=== PATIENT | female | born 1985 | race Caucasian/White ===

== ENCOUNTER 2018-01-16 14:51 | Emergency (ER) | payer BC ==
[2018-01-16 16:14] VITALS: BP 129/85
--- NOTE | 2018-01-16 16:25 | UC ---
Respiratory Complaint HPI - HPI Summary HPI Summary: Sinus congestion x 3 weeks ago, with gradual development of a productive cough with increased wheeze at night. No shortness of breath. Energy decreased, not sleeping well. Sore throat resolved, no ear pain or headache. Travelling to [place] by air tomorrow to spend 5 days on a houseboat. - History of Current Complaint Chief Complaint: UCRespiratory Stated Complaint: COUGH/CONGESTION Time Seen by Provider: 01/16/18 16:13 Hx Obtained From: Patient Hx Last Menstrual Period: 12/30/17 Onset/Duration: Gradual Onset, Lasting Weeks - 3 Timing: Intermittent Episodes Severity Initially: Moderate Severity Currently: Moderate Pain Intensity: 3 Character: Cough: Productive - clear sputum Aggravating Factors: Recumbent Position Alleviating Factors: OTC Meds Associated Signs And Symptoms: Positive: Wheezing - Risk Factors Pulmonary Embolism Risk Factors: Negative Cardiac Risk Factors: Negative Pseudomonas Risk Factors: Negative Tuberculosis Risk Factors: Negative - Allergies/Home Medications Allergies/Adverse Reactions: Allergies Allergy/AdvReac Type Severity Reaction Status Date / Time Penicillins Allergy Rash Verified 01/16/18 16:14 PMH/Surg Hx/FS Hx/Imm Hx Previously Healthy: Yes - Surgical History Surgical History: Yes Surgery Procedure, Year, and Place: [id number] - Family History Known Family History: Positive: Respiratory Disease - [place] [facility] [place] Social History Occupation: Employed Full-time Lives: With Family Alcohol Use: Weekly Substance Use Type: None Smoking Status (MU): Never Smoked Tobacco Review of Systems Constitutional: Fatigue Skin: Negative Eyes: Negative ENT: Negative Respiratory: Cough Cardiovascular: Negative Gastrointestinal: Negative Genitourinary: Negative Motor: Negative Neurovascular: Negative Musculoskeletal: Negative Neurological: Headache - now resolved. Psychological: Negative Is Patient Immunocompromised?: No All Other Systems Reviewed And Are Negative: Yes Physical Exam Triage Information Reviewed: Yes Appearance: Well-Appearing, No Pain Distress Vital Signs: Initial Vital Signs Temp 99.5 F 01/16/18 16:10 Pulse 92 01/16/18 16:10 Resp 16 01/16/18 16:10 BP 129/85 01/16/18 16:10 Pulse Ox 96 01/16/18 16:10 Eyes: Positive: Conjunctiva Clear ENT: Positive: Pharynx normal, TMs normal. Negative: Pharyngeal erythema Neck: Positive: Supple, Nontender, No Lymphadenopathy Respiratory: Positive: No respiratory distress, No accessory muscle use, Wheezing - upper lung su, with mildly prolonged expiration and wheeze. Cardiovascular: Positive: RRR, No Murmur Musculoskeletal Exam: Normal Neurological: Positive: Alert, Muscle Tone Normal Psychological Exam: Normal Skin Exam: Normal UC Diagnostic Evaluation - Laboratory O2 Sat by Pulse Oximetry: 96 Respiratory Course/Dx - Course Course Of Treatment: viral bronchitis, will give prednisone and albuterol. Due to upcoming travel, course of zithromax given for reserved use if she develops fever or shortness of breath. - Differential Dx/Diagnosis Differential Diagnosis/HQI/PQRI: Asthma, Bronchitis, Sinusitis Provider Diagnoses: viral bronchitis. Discharge - Sign-Out/Discharge Documenting (check all that apply): Patient Departure All imaging exams completed and their final reports reviewed: No Studies - Discharge Plan Condition: Stable Disposition: HOME Prescriptions: Albuterol HFA INHALER* [Ventolin HFA Inhaler*] 2 puff INH Q6H PRN #1 mdi PRN Reason: Wheezing Azithromyxin AGUILAR (NF) [Z-Aguilar (Zithromax) 250 mg tabs #6] 2 tab PO .TODAY, THEN 1 DAILY #6 tab Inhaler, Assist Devices [Aerochamber Mini Aerosol] 1 mis XX QID #1 mis predniSONE [Prednisone 20 MG TAB] 2 tab PO DAILY #10 tablet Patient Education Materials: Acute Bronchitis (ED) Referrals: No Primary Care Phys,NOPCP [Primary Care Provider] - Additional Instructions: Use prednisone once daily for 5 days to decrease congestion and wheeze. Albuterol can be used to decrease wheeze and improve cough. Use of the aerochamber will ensure that the medications gets into your lungs. You have a reserve course of azithromycin. Use this if you develop fever, shortness of breath, chest pain--symptoms suggesting development of pneumonia. - Billing Disposition and Condition Condition: STABLE Disposition: Home
== END 2018-01-16 16:54 | disposition home or self-care (01) ==
LOC: UCCORT 14:51
DX: J20.8 Acute bronchitis due to other specified organisms (principal); Z88.0 Allergy status to penicillin
CPT/HCPCS: 99202; G0463